=== PATIENT | female | born 1950 | race Caucasian/White ===

== ENCOUNTER → 2016-09-03 | Outpatient (REF) | payer OTHER | LOC: M LABNEURO 13:44 | PROVIDERS: ATTEND Physician Assistant Medical | DX: G43.909 Migraine, unspecified, not intractable, without status migrainosus (principal); E55.9 Vitamin D deficiency, unspecified ==

== ENCOUNTER → 2016-12-10 | Outpatient (CLI) | payer MEDICARE, MEDICAID ==
[2016-12-10 10:50] LABS: MEAN CORPUSCULAR HEMOGLOBIN 30.7 pg (27.0-33.0); MEAN CORPUSCULAR HGB CONC 34.3 g/dl (32.0-36.5); MEAN CORPUSCULAR VOLUME 89.5 fl (80.0-96.0); RED CELL DISTRIBUTION WIDTH 13.4 % (11.5-14.5); WHITE BLOOD COUNT 5.4 K/mm3 (4.0-10.0)
[2016-12-10 11:09] LABS: ALBUMIN 3.5 GM/DL (3.2-5.2); ALBUMIN/GLOBULIN RATIO 1.17 (1.00-1.93); ALKALINE PHOSPHATASE 120 U/L (45-117); ALT/SGPT 21 U/L (12-78); ANION GAP 6 MEQ/L (8-16); AST/SGOT 10 U/L (15-37); BILIRUBIN,TOTAL 0.3 MG/DL (0.2-1.0); BLOOD UREA NITROGEN 19 MG/DL (7-18); CALCIUM LEVEL 8.4 MG/DL (8.8-10.2); CARBON DIOXIDE LEVEL 31 MEQ/L (21-32); CHLORIDE LEVEL 103 MEQ/L (98-107); CHOLESTEROL LEVEL 227 MG/DL (<200); CREATININE FOR GFR 0.62 MG/DL (0.55-1.02); GLOMERULAR FILTRATION RATE > 60.0 (>45); GLUCOSE, FASTING 169 MG/DL (80-110); POTASSIUM SERUM 4.3 MEQ/L (3.5-5.1); SODIUM LEVEL 140 MEQ/L (136-145); TOTAL PROTEIN 6.5 GM/DL (6.4-8.2); TRIGLYCERIDES LEVEL 140 MG/DL (<150)
== END ==
LOC: M LAB 09:44
PROVIDERS: ATTEND Nurse Practitioner Family
DX: I10 Essential (primary) hypertension (principal); E78.5 Hyperlipidemia, unspecified; E11.9 Type 2 diabetes mellitus without complications

== ENCOUNTER → 2016-12-27 | Outpatient (CLI) | payer MEDICARE, MEDICAID ==
[~2016-12-27] MED LIST: ISOVUE-370 76% 100ML VIAL (Q9967) As Ordered ONE
--- NOTE | 2016-12-27 09:35 | REP ---
Clinical: Thoracic pain. Technique: AP, lateral, swimmers views. Findings: AP view demonstrates chronic dextroconvex scoliosis with associated bridging osteophytes and endplate sclerosis at the T7-8 level and to a lesser extent the T6-7 and T8-9 levels. Normal kyphosis maintained in the lateral projection. No acute fracture / compression injury or subluxation noted. Impression: Chronic scoliosis and moderate focal degenerative changes. Signed by Isrrael Romano MD 12/27/2016 09:27 A
--- NOTE | 2016-12-27 12:07 | REP ---
Clinical: Upper abdominal pain. Technique: Axial precontrast, contrast enhanced and delayed images from the lung bases to the pubic symphysis using 100 ml Isovue 370 intravenous contrast material with coronal and sagittal re-formations. Findings: Lung bases are clear. Visualized heart and pericardium normal. Fatty infiltration of the liver noted without focal hepatic lesion. Evidence of prior cholecystectomy. Spleen, pancreas, bilateral adrenal glands and kidneys are normal. The enteric system is without obstruction or acute inflammatory process. Colonic diverticulosis noted without acute diverticulitis. Pelvis demonstrates collapsed bladder and evidence for prior hysterectomy. No ascites. No free air. No adenopathy. Abdominal aorta and vasculature appears normal. Surrounding musculoskeletal structures demonstrate age-related changes without focal osseous abnormality. Impression: 1. Hepatosteatosis. 2. Diverticulosis without acute diverticulitis. 3. Evidence for prior cholecystectomy and hysterectomy. 4. No ascites or acute abdominopelvic pathology appreciated. Signed by Isrrael Romano MD 12/27/2016 11:59 A
== END ==
LOC: M RAD 08:32
PROVIDERS: ATTEND Nurse Practitioner Family
DX: R10.10 Upper abdominal pain, unspecified (principal); M54.6 Pain in thoracic spine; K57.90 Diverticulosis of intestine, part unspecified, without perforation or abscess without bleeding; K76.0 Fatty (change of) liver, not elsewhere classified; M41.84 Other forms of scoliosis, thoracic region
CPT/HCPCS: 72072; 74178; Q9967

== ENCOUNTER → 2017-09-09 | Outpatient (CLI) | payer MEDICARE, MEDICAID ==
[2017-09-09 13:50] LABS: TOTAL 25(OH) VITAMIN D 105.5 NG/ML (30.0-100.0)
[2017-09-09 13:57] LABS: VALPROIC ACID (DEPAKOTE) 79.1 UG/ML (50.0-100.0)
== END ==
LOC: M LAB 12:43
DX: E55.9 Vitamin D deficiency, unspecified (principal); G43.909 Migraine, unspecified, not intractable, without status migrainosus; R42 Dizziness and giddiness
CPT/HCPCS: 80164

== ENCOUNTER → 2018-03-14 | Outpatient (REF) | payer MEDICARE, MEDICAID ==
[2018-03-14 14:18] LABS: TOTAL 25(OH) VITAMIN D 90.7 NG/ML (30.0-100.0)
[2018-03-14 14:36] LABS: VALPROIC ACID (DEPAKOTE) 58.7 UG/ML (50.0-100.0)
== END ==
LOC: M LABNEURO 12:49
DX: G40.909 Epilepsy, unspecified, not intractable, without status epilepticus (principal); E55.9 Vitamin D deficiency, unspecified; R42 Dizziness and giddiness
CPT/HCPCS: 80164

== ENCOUNTER → 2019-03-21 | Outpatient (REF) | payer MEDICARE ==
[2019-03-21 14:15] LABS: TOTAL 25(OH) VITAMIN D 38.9 NG/ML (30.0-100.0); VALPROIC ACID (DEPAKOTE) 63.7 UG/ML (50.0-100.0)
== END ==
LOC: M LABNEURO 10:28
PROVIDERS: ATTEND Physician Assistant Medical
DX: E55.9 Vitamin D deficiency, unspecified (principal); G43.909 Migraine, unspecified, not intractable, without status migrainosus